=== PATIENT | female | born 1955 | race Caucasian/White ===

== ENCOUNTER 2018-06-01 17:13 | Emergency (ER) | payer MEDICAID, OTHER ==
[~2018-06-01] VITALS: Ht 162.6 cm; Wt 74.8 kg
[~2018-06-01 17:13] MED LIST: BENZTROPINE MESY1 MG PO; DEPAKENE250 MG PO; DETROL2 MG PO; EFFEXOR XR75 MG PO; FAMOTIDINE20 MG PO; IBUPROFEN600 MG PO; KEFLEX500 MG ORAL; PERPHENAZINE2 MG PO; PRO-AMATINE2.5 MG ORAL; RISPERDAL2 MG PO; STALEVO 100 TA1 EACH PO; SYNTHROID75 MCG PO; TENORMIN25 MG ORAL; TOPAMAX100 MG GT; TOPIRAMATE100 MG PO; UNOBMED
--- NOTE | 2018-06-01 17:13 | Emergency Room Report ---
History of Present Illness General Chief Complaint: General Complaint Source: Patient, EMS Present Illness HPI Patient is a 62-year-old female brought in by EMS after a near syncopal episode. Patient had recently been noted to fill increased dizziness. Patient recently eloped from her [id number]. The patient was noted be on multiple medications. Patient recently been hospitalized after hypotensive episode. She denies any fever. The patient was given IV fluids by EMS. The patient states she is eloped in the past. Allergies: Coded Allergies: No Known Allergies (Unverified , 09/24/12) Patient History Past Medical History: see triage record, psych hx Now: No Reviewed Nursing Documentation: PMH: Agreed; PSxH: Agreed Review of Systems All Other Systems: limited Physical Exam Vital Signs Date Time Temp Pulse Resp B/P (MAP) Pulse Ox O2 Delivery O2 Flow Rate FiO2 06/01/18 17:06 98.0 110 18 100/60 99 Room Air 98.1 Sp02 EP Interpretation: reviewed, normal General Appearance: normal inspection, well appearing, no apparent distress, alert, GCS 15, non-toxic Head: atraumatic ENT: normal ENT inspection, hearing grossly normal, normal voice Neck: normal inspection, full range of motion, supple, no bony tend Respiratory: normal inspection, lungs clear, normal breath sounds, no respiratory distress, no retraction, no wheezing Cardiovascular #1: regular rate, rhythm, no edema Gastrointestinal: normal inspection, normal bowel sounds, non tender, soft, no guarding, no hernia Genitourinary: no CVA tenderness Musculoskeletal: normal inspection, back normal, normal range of motion Neurologic: normal inspection, alert, responsive, speech normal Psychiatric: normal inspection, judgement/insight normal, mood/affect normal Skin: normal inspection, normal color, no rash Medical Decision Making Diagnostic Impression: Primary Impression: Psychosis Additional Impression: Dehydration ER Course Patient presented for generalized weakness. The differential diagnosis included was not limited to sepsis, dehydration, myocardial injury, dehydration , among others.Because of complexity of patient's case laboratory testing and imaging studies were ordered. The patient was noted to be initially hypotensive with EMS. She started on IV fluids. The laboratory testing was unremarkable other than hypokalemia. The patient was given IV fluids as well as oral potassium. The patient noted to have improvement of blood pressure. Patient will be sent back to her [facility]-and- care with [facility]. Labs Test 9/25/18 17:30 White Blood Count 9.3 K/UL (4.8-10.8) Red Blood Count 3.87 M/UL (4.20-5.40) Hemoglobin 13.1 G/DL (12.0-16.0) Hematocrit 37.8 % (37.0-47.0) Mean Corpuscular Volume 98 FL (80-99) Mean Corpuscular Hemoglobin 33.9 PG (27.0-31.0) Mean Corpuscular Hemoglobin Concent 34.7 G/DL (32.0-36.0) Red Cell Distribution Width 11.2 % (11.6-14.8) Platelet Count 283 K/UL (150-450) Mean Platelet Volume 7.1 FL (6.5-10.1) Neutrophils (%) (Auto) 61.2 % (45.0-75.0) Lymphocytes (%) (Auto) 27.1 % (20.0-45.0) Monocytes (%) (Auto) 9.6 % (1.0-10.0) Eosinophils (%) (Auto) 0.7 % (0.0-3.0) Basophils (%) (Auto) 1.5 % (0.0-2.0) Sodium Level 140 MMOL/L (136-145) Potassium Level 2.7 MMOL/L (3.5-5.1) Chloride Level 105 MMOL/L (98-107) Carbon Dioxide Level 23 MMOL/L (21-32) Anion Gap 12 mmol/L (5-15) Blood Urea Nitrogen 9 mg/dL (7-18) Creatinine 0.6 MG/DL (0.55-1.30) Estimat Glomerular Filtration Rate > 60 mL/min (>60) Glucose Level 126 MG/DL (74-106) Lactic Acid Level 1.00 mmol/L (0.4-2.0) Calcium Level 8.8 MG/DL (8.5-10.1) Total Bilirubin 0.8 MG/DL (0.2-1.0) Aspartate Amino Transf (AST/SGOT) 18 U/L (15-37) Alanine Aminotransferase (ALT/SGPT) 11 U/L (12-78) Alkaline Phosphatase 90 U/L (46-116) Total Creatine Kinase 36 U/L (26-308) Creatine Kinase MB < 0.5 NG/ML (0.0-3.6) Creatine Kinase MB Relative Index 1.3 Troponin I 0.000 ng/mL (0.000-0.056) Pro-B-Type Natriuretic Peptide 99 pg/mL (0-125) Total Protein 6.5 G/DL (6.4-8.2) Albumin 3.2 G/DL (3.4-5.0) Globulin 3.3 g/dL Albumin/Globulin Ratio 1.0 (1.0-2.7) Last Vital Signs Date Time Temp Pulse Resp B/P (MAP) Pulse Ox O2 Delivery O2 Flow Rate FiO2 06/01/18 17:06 98.0 110 18 100/60 99 Room Air 98.1 Status: improved Disposition: HOME, SELF-CARE Condition: Stable Renzo Webb MD Jun 01, 2018 17:13
[2018-06-01 17:15] VITALS: BP 114/78
[2018-06-01 17:46] LABS: BASOPHILS % (AUTO) 1.5 % (0.0-2.0); EOSINOPHILS % (AUTO) 0.7 % (0.0-3.0); HEMATOCRIT 37.8 % (37.0-47.0); HEMOGLOBIN 13.1 G/DL (12.0-16.0); LYMPHOCYTES % (AUTO) 27.1 % (20.0-45.0); MEAN CORPUSCULAR VOLUME 98 FL (80-99); MONOCYTES % (AUTO) 9.6 % (1.0-10.0); NEUTROPHILS % (AUTO) 61.2 % (45.0-75.0); PLATELET COUNT 283 K/UL (150-450); RED BLOOD COUNT 3.87 M/UL (4.20-5.40); RED CELL DISTRIBUTION WIDTH 11.2 % (11.6-14.8); WHITE BLOOD COUNT 9.3 K/UL (4.8-10.8)
[2018-06-01 18:19] LABS: ALANINE AMINOTRANSFERASE 11 U/L (12-78); ALBUMIN 3.2 G/DL (3.4-5.0); ALKALINE PHOSPHATASE 90 U/L (46-116); ANION GAP 12 mmol/L (5-15); ASPARTATE AMINO TRANSFERASE 18 U/L (15-37); BILIRUBIN,TOTAL 0.8 MG/DL (0.2-1.0); BLOOD UREA NITROGEN 9 mg/dL (7-18); CALCIUM 8.8 MG/DL (8.5-10.1); CARBON DIOXIDE 23 MMOL/L (21-32); CHLORIDE 105 MMOL/L (98-107); CKMB < 0.5 NG/ML (0.0-3.6); CREATINE KINASE 36 U/L (26-308); CREATININE 0.6 MG/DL (0.55-1.30); SODIUM 140 MMOL/L (136-145)
[2018-06-01 18:21] LABS: POTASSIUM 2.7 MMOL/L (3.5-5.1)
[2018-06-01 20:05] VITALS: BP 128/74
[2018-06-01 21:09] VITALS: BP 114/70
--- NOTE | 2018-06-02 08:29 | Diagnostic Imaging Report ---
Indication: Chest pain Technique: One view of the chest Comparison: 05/11/2015 Findings: Lungs and pleural spaces are clear. Heart size is normal. No significant interim change Impression: No acute process
--- NOTE | 2018-06-09 13:41 | Cardiology Report ---
APPROVED REPORT EKG Measurement Heart [id number] Sinus tachycardia Possible Left atrial enlargement Nonspecific T wave abnormality Abnormal ECG
== END 2018-06-01 21:12 | disposition home or self-care (01) ==
LOC: EDBD 17:13 → EMR 17:39
DX: F29 Unspecified psychosis not due to a substance or known physiological condition (principal); E86.0 Dehydration; R53.1 Weakness; E87.6 Hypokalemia
CPT/HCPCS: 36415; 71045; 80053; 82550; 82553; 83605; 83880; 84484; 85025; 87040; 87181; 93005; 96365; 99284; J3480; J8499